=== PATIENT | female | born 1990 | race Two or more races ===

== ENCOUNTER 2024-08-26 07:49 | Outpatient (RCR) | payer MEDICAID, SELFPAY | END 2024-09-20 23:59 | disposition home or self-care (01) | LOC: SCTC 07:49 | PROVIDERS: PCP Specialist; Referring Provider Physician Assistant Medical; Visit Provider Nurse Practitioner Family | DX: D70.9 Neutropenia, unspecified (principal); D50.9 Iron deficiency anemia, unspecified; Z98.84 Bariatric surgery status | CPT/HCPCS: 99213; G0463 ==

== ENCOUNTER 2024-12-09 10:27 | Outpatient (RCR) | payer MEDICAID, SELFPAY | END 2024-12-20 23:59 | disposition home or self-care (01) | LOC: SCTC 10:27 | PROVIDERS: PCP Physician Assistant; Referring Provider Nurse Practitioner Family; Visit Provider Nurse Practitioner Family | DX: D50.9 Iron deficiency anemia, unspecified (principal); Z98.84 Bariatric surgery status; Z87.19 Personal history of other diseases of the digestive system | CPT/HCPCS: 99212; G0463 ==

== ENCOUNTER → 2024-12-25 | Outpatient (CLI) | payer MEDICAID, SELFPAY ==
--- NOTE | 2024-12-25 12:00 | XR_ITS ---
Examination: MRI right ankle, without contrast Date and time of exam: December 25, 2024, 12:18 PM INDICATIONS: Right heel pain for years, history surgery for plantar fasciitis 4 years ago Technique: Multiple axial sagittal and coronal images of the right ankle have been obtained with the Siemens high-resolution 1.5 Lizette MRI scanner. Images obtained include T2-weighted fat-suppressed sagittal sections, TR 3500, TE 46, T2 weighted coronal fat suppressed images, TR 3050, TE 84, T2-weighted transverse fat suppressed images, TR 3260, TE 63, proton density transverse images, TR 4720 TE 46, and T1 weighted coronal images, TR 560, TE 13. Findings: Mild thickening Achilles tendon Prominent thickening and inflammatory change plantar fascia No occult fracture bone contusion avascular necrosis Small ankle effusion Anterior posterior inferior tibiofibular ligaments talofibular ligaments intact Mild diffuse tendinitis flexor tendons Extensor tendons intact IMPRESSION: Significant plantar fasciitis
== END | disposition home or self-care (01) ==
LOC: SMRI 11:46
PROVIDERS: PCP Physician Assistant; Referring Provider Otolaryngology; Visit Provider Otolaryngology
DX: M72.2 Plantar fascial fibromatosis (principal)
CPT/HCPCS: 73721

== ENCOUNTER → 2024-12-29 | Outpatient (CLI) | payer MEDICAID, SELFPAY ==
[2024-12-29 15:19] LABS: HCG Qualitative,Urine Negative
--- NOTE | 2024-12-29 15:30 | XR_ITS ---
Examination: CT chest with intravenous contrast CT abdomen with intravenous contrast CT pelvis with intravenous contrast 2-D coronal and sagittal reconstructions Time of exam: December 29, [address] abdomen pelvis April 08, 2023 INDICATIONS: Diagnosis neutropenia unspecified, diagnosed 1.5 years ago CTDI: vol (mGy) : 5.40 DLP: (mGycm): 350 Technique: Multiple axial images of the chest, abdomen and pelvis with intravenous contrast, 3.0 mm slice thickness. Images obtained post intravenous injection Isovue 370 60 cc. 2-D sagittal and coronal reconstructions. Low dose protocols were performed. One or more of the following dose reduction techniques were used; automated exposure control, adjustment of the mA and/or KV according to patient size, use of iterative reconstruction technique. Findings: No thoracic aortic aneurysm dilatation No pulmonary artery emboli on this non-CTA study No paratracheal tracheobronchial or bronchopulmonary adenopathy. No pneumonia, pulmonary edema, pleural disease or pulmonary nodules No visualized liver or splenic lesion, hepatomegaly 17.6 cm Absent gallbladder No extrahepatic biliary tract dilatation Stable 28 mm right adrenal adenoma No abdominal or pelvic lymphadenopathy No renal or ureteral calculi, no hydronephrosis Aorta normal size Normal appendix Anteverted uterus Intact urinary bladder The osseous structures are intact IMPRESSION: No mediastinal lymphadenopathy No pneumonia, pulmonary edema, pleural disease or pulmonary nodules No abdominal or pelvic lymphadenopathy Mild to moderate hepatomegaly, negative for splenomegaly Normal appendix
== END | disposition home or self-care (01) ==
PROVIDERS: PCP Physician Assistant; Referring Provider Radiology Diagnostic Radiology; Visit Provider Nurse Practitioner Family
DX: R16.0 Hepatomegaly, not elsewhere classified (principal); D70.9 Neutropenia, unspecified; Z32.00 Encounter for pregnancy test, result unknown
CPT/HCPCS: 71260; 74177; 81025; A4649; Q9967

== ENCOUNTER 2025-01-19 13:00 | Outpatient (RCR) | payer MEDICAID, SELFPAY | END 2025-01-20 23:59 | disposition home or self-care (01) | LOC: SCTC 13:00 | PROVIDERS: PCP Physician Assistant; Referring Provider Internal Medicine Hematology & Oncology; Visit Provider Internal Medicine Hematology & Oncology | DX: D50.9 Iron deficiency anemia, unspecified (principal); R16.0 Hepatomegaly, not elsewhere classified; D35.01 Benign neoplasm of right adrenal gland; Z98.84 Bariatric surgery status | CPT/HCPCS: 96365; 96367; 96374; 96375; 99212; J1756; J2919; J3490; J7040; J7050; A9270; G0463 ==

== ENCOUNTER 2025-02-03 12:51 | Outpatient (RCR) | payer MEDICAID, SELFPAY | END 2025-02-20 23:59 | disposition home or self-care (01) | LOC: SCTC 12:51 | PROVIDERS: PCP Physician Assistant; Referring Provider Physician Assistant; Visit Provider Internal Medicine Hematology & Oncology | DX: D50.9 Iron deficiency anemia, unspecified (principal); D70.9 Neutropenia, unspecified; Z98.84 Bariatric surgery status; R16.0 Hepatomegaly, not elsewhere classified; K21.9 Gastro-esophageal reflux disease without esophagitis | CPT/HCPCS: 96365; J1756; J7040; J7050 ==

== ENCOUNTER 2025-04-05 13:00 | Outpatient (RCR) | payer MEDICAID, SELFPAY ==
--- NOTE | 2025-03-30 14:36 | PT.OIERPT ---
PT OP Initial Eval Patient Information Outpatient Physical Therapy Treatment Date: 03/30/25 Visit Reasons: PAIN IN UNSPECIFIED FOOT Medical Diagnosis: Plantar Fasciitis Treatment Dx #1: Right Foot Pain Start of Care: 03/30/25 Date of Onset: 4 years ago Smoking Status Smoking Status: Never smoker Initial Assessment Subjective: Pt is a 34 y/o female reports of chronic right feet pain R>L started 4 years ago. Pt mentioned she had surgery on both feet but is unsure of the surgery details. Pt has received multiple cortisone shots in foot which is not helping. Physical therapy in the past has not helped either. Pt has difficulty with prolonged standing, walking, chores, balance, and performing recreational activities. Pt has tried shoe, inserts, and night splint which does not help the pain. Objective: Right Ankle AROM: all motions are WNL Right Ankle MMTs: grossly 4-/5 Right Hip MMTs: grossly 3+/5 Foot Observation: normal arch Special Test (-) windlass Palpation: TTP plantar fascia Assessment: Pt demonstrate right foot pain consistent with plantar fasciitis leading to difficulty with ADLs. Pt will attempt physical therapy if pain persist Pt will be refer back to provider for further consultation. Short Term and [employer] Goals 1) Increase right ankle MMTs grossly to 4/5 in 6 wks to be able to perform chores 2) Decrease foot pain to 2/10 in 6 wks to be able to stand more than 30 mins 3) Increase right hip MMTs grossly to 4-/5 in 6 wks to be able to walk more than 30 mins 4) Indep with HEP Treatment Plan 1) Manual Therapy 2) Therapeutic Activities 3) Therapeutic Exercises 4) Modalities (ice, heat) 5) Balance Training Frequency and Duration: 2 x wk for 9 wks Certification Dates: 03/30/25 to 06/30/25 Procedure Charges OP PT Eval Mod Complex 30 minutes: Yes
--- NOTE | 2025-04-05 14:34 | PT.ODAYNRPT ---
PT Outpatient Daily Note OP Daily Note Outpatient Physical Therapy Treatment Date: 04/05/25 Visit Reasons: PAIN IN UNSPECIFIED FOOT Subjective: Pt was able to find her old foot surgeon. He continues to practice in [place]. Pt's foot still hurts about the same. Objective: Please see flow chart for list of ther ex performed Assessment: tolerate exercises with minimal pain reported; minimal changes in pain post PT session Plan: Continue with PT Length of Time (minutes) of Treatment: 30 Minutes Procedure Charges Therapeutic Exercise 30 minutes: Yes
--- NOTE | 2025-04-11 14:49 | PT.ODS1RPT ---
PT OP Progress/Discharge Note Date of Service: 04/11/25 Progress Note/DC Note Progress Note/Discharge Note: DC Note Patient Information Visit Reasons: PAIN IN UNSPECIFIED FOOT Service Discharge Date: 04/11/25 Status Assessment: Pt has been seen for 2 visits (eval + 1 visit). Pt last treated on 04/05/25 and called to cx all pending appt due to change in insurance. Pt did not meet set goals in therapy; thank you for your referrals.
== END 2025-04-22 23:59 | disposition home or self-care (01) ==
LOC: CPTX 13:00
PROVIDERS: PCP Student in an Organized Health Care Education/Training Program; Referring Provider Student in an Organized Health Care Education/Training Program; Visit Provider Student in an Organized Health Care Education/Training Program
DX: M79.671 Pain in right foot (principal); G89.29 Other chronic pain
CPT/HCPCS: 97110; 97162